=== PATIENT | male | born 1985 | race Caucasian/White ===

== ENCOUNTER 2019-12-22 13:10 | Emergency (ER) | payer OTHER, SELFPAY ==
[2019-12-22 13:15] VITALS: BP 117/94; PULSE 81; RESP 18; TEMP 36.4; O2SAT 100
--- NOTE | 2019-12-22 13:50 | ED_ITS ---
HPI - Wound/Laceration General Chief Complaint: Wound/Laceration Stated Complaint: bite on left hand infected tooth Source: patient Limitations: no limitations History of Present Illness HPI narrative: pt states it started with a burn on his hand last week. A few days later another spotopened up. It has been swollen, and red. Onset (ago): day(s) Location: other (r hand) Body four view annotation: 1. abscess Place: home Context: other (burn to hand) Related Data Allergies Allergy/AdvReac Type Severity Reaction Status Date / Time No Known Allergies Allergy Verified 12/22/19 13:51 Review of Systems Review of Systems: All systems reviewed & are unremarkable except as noted in HPI and below Constitutional: Constitutional: Reports no additional constitutional complaints ENT: Reports system reviewed and no additional complaints, except as documented Comments: dental pain Exam Const: General: no acute distress Nutritional Appearance: well nourished Orientation/consciousness: patient oriented x3 HENMT: Head: normal to inspection Eyes: Conjunctivae: conjunctivae normal Neck: Neck: normal visual inspection Chest: Chest palpation & inspection: normal inspection of the chest Resp: Effort & Inspection: normal respiratory effort Cardio: Rate: regular rate Rhythm: regular rhythm GI: GI Palp: Yes Soft to palpation, No Guarding due to palpation present (GI), No Rigid due to palpation and No Palpable mass present Back/Spine/Pelvis: Back: no CVA tenderness Skin: General skin exam: normal color Neuro: General: patient oriented x3 Extrem: Other: woulnd on hand, red swollen. able to express pus, ctx preformed Course Vital Signs Vital signs: Vital Signs Temperature 36.4 C L 12/22/19 13:15 Pulse Rate 81 12/22/19 13:15 Respiratory Rate 18 12/22/19 13:15 Blood Pressure 117/94 H 12/22/19 13:15 Pulse Oximetry 100 12/22/19 13:15 Temperature 36.4 C L 12/22/19 13:15 Pulse Rate 81 12/22/19 13:15 Respiratory Rate 18 12/22/19 13:15 Blood Pressure 117/94 H 12/22/19 13:15 Pulse Oximetry 100 12/22/19 13:15 Discharge Plan Discharge Clinical Impression: Abscess Patient Disposition: Home, Self-Care Condition: Stable Instructions: Antibiotic Form, Abscess (ED) Prescriptions: New sulfamethoxazole-trimethoprim [Bactrim DS] 800-160 mg tablet 1 tablet PO Q12H Qty: 20 RF: 0 Follow-up/Referrals: Keisha Tran, [facility] [Primary Care Provider] -
[2019-12-22 14:15] VITALS: RESP 15
--- NOTE | 2019-12-25 12:24 | PC.NURSE ---
lab resulted mrsa, attempted to call patient . no answer. rx for bactrim ds given to pt per erp. no action required.
== END 2019-12-22 14:16 | disposition home or self-care (01) ==
PROVIDERS: Emergency Provider Emergency Medicine; PCP Nurse Practitioner Family
DX: L02.91 Cutaneous abscess, unspecified (principal)
CPT/HCPCS: 87070; 87077; 87186; 87205; 99283

== ENCOUNTER 2024-08-26 09:15 | Emergency (ER) | payer OTHER, SELFPAY ==
[2024-08-26 09:15] VITALS: BP 131/95; PULSE 110; RESP 18; TEMP 36.6; O2SAT 100
--- NOTE | 2024-08-26 09:24 | ED_ITS ---
HPI - Skin/Abscess/Foreign Bdy General Chief complaint: Urogenital-Male Stated complaint: std eval Time Seen by Provider: 08/26/24 09:22 Source: patient Mode of arrival: ambulatory Limitations: no limitations History of Present Illness HPI narrative: Patient is a 39-year-old male with a oropharyngeal irritation which is new in the past week as well as genital rash. His significant partner has been tested for herpes and she has been positive per history. She had an outbreak a week ago and he just started a week after exposure. He is having dysuria. MD complaint: rash ( Genital) Onset (ago): day(s) (4) Tetanus up to date: unsure Location: genitals ( as well as oral) Severity: moderate Severity scale (1-10): 5 Quality: burning, stabbing and sharp Pain Consistency: constant Relieving factors: none Exacerbating factors: none Context: other ( significant partner was positive for herpes in the past week) Associated symptoms: fever ( questionable), chills ( questionable) and malaise Treatments prior to arrival: none Related Data Allergies Allergy/AdvReac Type Severity Reaction Status Date / Time No Known Allergies Allergy Verified 08/26/24 09:42 Review of Systems Review of Systems: All systems reviewed & are unremarkable except as noted in HPI and below Constitutional: Constitutional: Reports no additional constitutional complaints Eyes: Eyes: Reports no additional eye complaints ENT: Reports system reviewed and no additional complaints, except as documented Cardiovascular: Cardiovascular: Reports no additional cardiovascular complaints Respiratory: Respiratory: Reports no additional respiratory complaints Gastrointestinal: Gastrointestinal: Reports no additional gastrointestinal complaints Genitourinary: Genitourinary: Reports no additional male genitourinary complaints Musculoskeletal: Musculoskeletal: Reports no additional musculoskeletal complaints Integumentary/Breasts: Skin/Breast: Reports system reviewed and no additional complaints, except as docu Neurologic: Reports system reviewed and no additional complaints, except as documented Psychiatric: Psychiatric: Reports no additional psychiatric complaints Endocrine: Endocrine: Reports no additional endocrine complaints Hematologic/Lymphatic: Hematologic/Lymphatic: Reports no additional hematologic/lymphatic complaints Allergic/Immunologic: Allergic/Immunologic: Reports no additional allergic/immunologic complaints Exam Const: General: healthy appearing Nutritional Appearance: well nourished Orientation/consciousness: patient oriented x3 Limitations: no limitations HENMT: Head: normal to inspection Ears: external ears normal Face/Nose/Sinus: Normal external nose present Other: oropharynx is red and irritated and his tongue has multiple lesions similar to the genital lesions Eyes: Conjunctivae: conjunctivae normal Pupils: Equal, round and reactive pupils present EOM: EOMs intact bilaterally Neck: Neck: normal visual inspection Chest: Chest palpation & inspection: normal inspection of the chest Resp: Effort & Inspection: normal respiratory effort and not labored Auscultation: clear to auscultation bilaterally and no crackles Cardio: Rate: regular rate and not bradycardic Rhythm: regular rhythm Heart sounds: no murmurs GI: Inspection: non-distended GI Palp: Yes Soft to palpation, No Tenderness to palpation present (GI) and No Guarding due to palpation present (GI) Auscultation: normal bowel sounds : General: Yes bladder normal to palpation Back/Spine/Pelvis: Back: no CVA tenderness Skin: General skin exam: normal color Rashes: rash noted Wounds: no wounds Other: genital region has multiple broken vesicular areas with a red base and round appearance lesions with tenderness Neuro: General: patient oriented x3 Cranial nerves: Yes Nystagmus not present Speech: normal speech Extrem: General: normal to inspection Psych: Mental Status: mental status grossly normal Affect: normal affect Attitude: cooperative Course Vital Signs Vital signs: Vital Signs Temperature 36.6 C 08/26/24 09:15 Pulse Rate 110 H 08/26/24 09:15 Respiratory Rate 18 08/26/24 09:15 Blood Pressure 131/95 H 08/26/24 09:15 Pulse Oximetry 100 08/26/24 09:15 Oxygen Delivery Room Air 08/26/24 09:15 Temperature 36.6 C 08/26/24 09:15 Pulse Rate 110 H 08/26/24 09:15 Respiratory Rate 18 08/26/24 09:15 Blood Pressure 131/95 H 08/26/24 09:15 Pulse Oximetry 100 08/26/24 09:15 Oxygen Delivery Room Air 08/26/24 09:15 MDM - Skin/Abscess/Foreign Bdy MDM Narrative Medical decision making narrative: patient is a 39-year-old male with an STD exposure and herpes exposure in the past week. We will do STD screening and treat accordingly for gonorrhea and chlamydia and herpes at this time. Lab Data Attestation: I reviewed the patient's lab results. Labs: Lab Results 08/26/24 08/26/24 08/26/24 Range/Units 09:24 10:07 10:26 Urine Color Pending Urine Appearance Pending Urine pH Pending Ur Specific [place] Pending Urine Protein Pending Urine Glucose (UA) Pending Urine Ketones Pending Ur Blood (Man) Pending Urine Nitrate Pending Urine Bilirubin Pending Urine Urobilinogen Pending Leukocyte Esterase Rfl Pending CSF HIV-1 p24 Ag Scrn RPR RPR Titer Add Testing C. trachomatis (PCR) Pending Herpes Virus Source Pending Herpes Simplex Culture Pending HIV 1&2 Antibody Rapid N. gonorrhoeae (PCR) Pending Ref Lab Test Name Pending Ref Lab Test Result Pending 08/26/24 Range/Units 10:31 Urine Color Urine Appearance Urine pH Ur Specific [place] Urine Protein Urine Glucose (UA) Urine Ketones Ur Blood (Man) Urine Nitrate Urine Bilirubin Urine Urobilinogen Leukocyte Esterase Rfl CSF HIV-1 p24 Ag Scrn Pending RPR Pending RPR Titer Add Testing Pending C. trachomatis (PCR) Herpes Virus Source Herpes Simplex Culture HIV 1&2 Antibody Rapid Pending N. gonorrhoeae (PCR) Ref Lab Test Name Ref Lab Test Result Discharge Plan Discharge Clinical Impression: STD exposure Herpes genitalia Qualifiers: Herpes simplex infection site: other site of male genital organs Qualified Code(s): A60.02 - Herpesviral infection of other male genital organs Patient Disposition: Home, Self-Care Condition: Stable Instructions: Genital Herpes Infection (ED), Sexually Transmitted Diseases (ED) Prescriptions: New valacyclovir [Valtrex] 1 gram tablet 1,000 mg PO BID 10 Days Qty: 20 0RF Follow-up/Referrals: UNKNOWN,DOCTOR [Primary Care Provider] - Time of Disposition: 10:36
[2024-08-26 10:29] LABS: Add Urine Microscopic? YES; Appearance Urine Clear (Clear); Bilirubin Urine Negative (Negative); Blood Urine Negative (Negative); Color Urine Yellow (Yellow); Glucose Urine UA Negative (Negative); Ketones Urine Negative (Negative); Leukocyte Esterase Ur Negative LEU/UL (Negative); Nitrate Urine Negative (Negative); Protein Urine Trace (Negative); Specific Grav Ur 1.025 (1.010-1.020); Urobilinogen Urine 0.2 mg/dL (0.2-1.0); pH Urine 6.5 (5.0-8.0)
[2024-08-26 10:35] LABS: RBC Urine 0-2 /hpf (0-2); WBC Urine 0-3 /hpf (0-3)
[2024-08-26 10:36] LABS: Bacteria Urine Rare /hpf; Mucus Urine Heavy /lpf
[2024-08-26] MEDS: AZITHROMYCIN 250 MG TABLET 1000 MG PO (10:38)
[2024-08-26] MEDS: cefTRIAXone 500 MG, LIDOCAINE HCL 1% LOCAL INJ 1 ML IM (10:40)
[2024-08-26 10:55] VITALS: BP 150/87; PULSE 98; RESP 18; O2SAT 99
[2024-08-26 11:05] LABS: HIV 1 P24 AG Negative (Negative); HIV 1/2 AB Negative (Negative)
[2024-08-27 08:36] LABS: Chlamydia trachomatis NOT DETECTED (NOT DETECTE); Neisseria gonorrhoeae PCR NOT DETECTED (NOT DETECTE)
[2024-08-28 16:09] LABS: RPR Screen NON-REACTIVE (NON-REACTIVE)
[2024-08-29 11:43] LABS: Source NOT GIVEN
[2024-09-01 13:52] LABS: Reference Lab Test Name CHLAMYDIA GONORRHOEA
== END 2024-08-26 10:55 | disposition home or self-care (01) ==
PROVIDERS: Emergency Provider Emergency Medicine
DX: A60.02 Herpesviral infection of other male genital organs (principal)
CPT/HCPCS: 36415; 81001; 86592; 87255; 87491; 87591; 87806; 96372; 99283; A9270; J0696; J2003